=== PATIENT | male | born 1995 ===

== ENCOUNTER 2024-12-01 08:26 | Emergency (ER) | payer MEDICARE, SELFPAY ==
[2024-12-01 08:32] VITALS: BP 121/84; PULSE 54; RESP 18; TEMP 37.2; O2SAT 96; BMI 28.0
--- NOTE | 2024-12-01 08:59 | ED_ITS ---
HPI - General Adult General Date Seen: 12/01/24 Chief complaint: Abdominal Pain Stated complaint: stomach and kidney pain Time Seen by Provider: 12/01/24 08:32 History of Present Illness HPI narrative: Patient is a 28-year-old young man here with his fiancee for evaluation of abdominal and flank/lower back pain. He says that symptoms have been present for about a week and half. It was worse today which is what made him decide to come in. He says he has had normal appetite, he has not had any nausea vomiting, denies diarrhea constipation, black or bloody stools. Denies history of prior similar pain. He has pain is there all the time but it is worse when he lays down or rolls from side to side. He says that the pain is coming from his kidney. He has not noted any hematuria, has not had dysuria or frequency. No history of kidney stones. He notes a history of depression, anxiety, bipolar, for which he takes medical marijuana. He denies any other medications. Denies other substances including alcohol and tobacco. He has not taken anything for pain at home. Related Data Home Medications ?Medication ?Instructions ?Recorded ?Confirmed No Known Home Medications 12/01/24 12/01/24 Allergies Allergy/AdvReac Type Severity Reaction Status Date / Time No Known Drug Allergies Allergy Verified 12/01/24 09:49 Review of Systems Status of ROS: Reports: 10 or more systems reviewed and unremarkable except as noted in History and below [facility] Social History Smoking Status: Current some day smoker What tobacco products do you use: cigarettes Do you use any of these nicotine containing products: None Second hand tobacco smoke exposure: No How often do you have a drink containing alcohol: monthly or less How many standard drinks containing alcohol do you have on a typical day: 1 or 2 AUDIT-C Alcohol total score: 1 Non-prescribed substance use: marijuana (any form) service: No Exam Narrative: Exam Narrative: Vital signs reviewed In general, alert, nontoxic young man. Laying comfortably in bed. Head: Normocephalic, atraumatic. Eyes: Sclera clear. Pupils equal and reactive. ENT: Mucous membranes moist. Neck: Supple without adenopathy. Heart: Regular rate and rhythm without murmur. Lungs: Clear. No increased work of breathing, crackles or wheezes. No CVA tenderness. Back: He does seem to have some diffuse tenderness of the musculature in the right low back. Abdomen: Abdomen is soft, nondistended. He notes diffuse tenderness throughout the abdomen but there is no rebound guarding or rigidity. Extremities: Well perfused, pulses intact. No significant edema. Neurologic: Alert, conversant. Speech fluent, face symmetric. Moves all extremities equally. Skin: Warm, dry well perfused. Affect: Normal. Const: Vital Signs, click to edit/add: Vital Signs - 24 hr 12/01/24 08:32 12/01/24 10:55 Temperature 98.9 F Pulse Rate 58 L Pulse Rate [Pulse Oximeter] 54 L Respiratory Rate 18 16 Blood Pressure 120/81 Blood Pressure [Ri ght Upper Arm] 121/84 Pulse Oximetry 96 98 Oxygen Delivery Me thod Room Air Room Air Course Course ED Course: We placed an IV here, gave Toradol 15 mg IV as well as 500 mL of normal saline. Patient declined most of the IV fluids. He had labs including a CBC, metabolic panel, liver function tests and lipase as well as UA. All lab results are reviewed and are within normal limits. CT scan by my review showed some fluid along the retroperitoneal space on the right, I did not see significant abnormalities in the bowel, was not able to see the appendix. Kidneys look normal. Final radiology report was reviewed and I discussed this on the phone with the radiologist as well. There is a small amount of free fluid in the right retroperitoneum of unclear etiology. Specifically, the kidneys, pancreas, duodenum, and bowel all look normal. The appendix was visualized and is normal. She did note that the IVC looked dilated, which she felt was likely related to hydration. Patient has no risk factors for DVT and has no symptoms to suggest DVT. With regard to the retroperitoneal fluid, discussed the possibility of ureteral injury, patient denies any recent trauma or surgeries, so this is felt to be of low likelihood. Also seen on CT was a slightly enlarged lymph node near the esophagus and a small area of consolidation in the right lower lobe of uncertain significance clinically in the absence of any pulmonary symptoms. I have discussed all this with the patient. He would like to avoid further testing today if possible. Initially he was going to leave [facility] and refused any further testing but ultimately did agree to stay, I have discussed options with him of additional imaging today to include a CT urogram versus observation and close follow-up as an outpatient. He would prefer to follow-up as an outpatient. We have made him a clinic appointment and I have stressed the importance of following up for that appointment. If he worsens in the meantime, develops worsening or severe pain, fevers, vomiting, or other new symptoms, he should return to the emergency department for re-evaluation. He declines need for anything for pain at home. Vital Signs Vital signs: Initial Vital Signs Temperature 98.9 F 12/01/24 08:32 Temperature Source Temporal Artery Scan 12/01/24 08:32 Pulse Rate 54 L 12/01/24 08:32 Pulse Rhythm Regular 12/01/24 08:32 Respiratory Rate 18 12/01/24 08:32 Blood Pressure 121/84 12/01/24 08:32 Blood Pressure Mean 96 12/01/24 08:32 Blood Pressure Position Semi-Fowlers 12/01/24 08:32 Pulse Oximetry 96 12/01/24 08:32 Oxygen Delivery Method Room Air 12/01/24 08:32 Vital Signs Temperature 98.9 F 12/01/24 08:32 Pulse Rate 54 L 12/01/24 08:32 Respiratory Rate 18 12/01/24 08:32 Blood Pressure 121/84 12/01/24 08:32 Pulse Oximetry 96 12/01/24 08:32 Oxygen Delivery Method Room Air 12/01/24 08:32 Temperature 98.9 F 12/01/24 08:32 Pulse Rate 58 L 12/01/24 10:55 Respiratory Rate 16 12/01/24 10:55 Blood Pressure 120/81 12/01/24 10:55 Pulse Oximetry 98 12/01/24 10:55 Oxygen Delivery Method Room Air 12/01/24 10:55 Medications Administered Medications: Discontinued Medications Generic Name Dose Route Start Last Admin Trade Name Freq PRN Reason Stop Dose Admin Sodium Chloride 500 mls @ 500 mls/hr 12/01/24 08:58 12/01/24 10:28 0.9 % Sodium Chloride 500 Ml IV 12/01/24 09:57 Infused .Q1H ONE Infusion Ketorolac Tromethamine 15 mg 12/01/24 08:58 12/01/24 09:25 Ketorolac 15 Mg/Ml Inj IVP 12/01/24 08:59 Not Given ONCE ONE Medical Decision Making Lab Data Lab results reviewed: Yes I reviewed the patient's lab results Labs: Lab Results 12/01/24 12/01/24 Range/Units 09:00 09:20 WBC 8.45 (4.50-11.00) K/uL RBC 5.18 (4.30-5.90) m/uL Hgb 15.1 (13.5-17.5) gm/dL Hct 44.8 (37.0-53.0) % MCV 87 (80-100) fL MCH 29 (26-34) pg MCHC 34 (32-36) gm/dL RDW Coeff of Patric 11.8 (11.5-15.5) % Plt Count 235 (140-440) K/uL Neut % (Auto) 68.8 (42.0-72.0) % Lymph % (Auto) 21.1 (20-44) % [place] % (Auto) 6.9 (0.0-11.0) % Eos % (Auto) 2.6 (0.0-7.0) % Baso % (Auto) 0.5 (0.0-3.0) % Neut # (Auto) 5.82 (1.7-7.0) K/uL Lymph # (Auto) 1.78 (0.90-2.90) K/uL [place] # (Auto) 0.60 (0.00-0.90) K/UL Eos # (Auto) 0.22 (0.00-0.50) K/uL Baso # (Auto) 0.04 (0.00-0.30) K/uL Abs Immat Gran (auto) 0.01 (0.00-0.30) K/uL Imm/Tot Granulo (auto) 0.1 % Sodium 135 (135-149) mmol/L Potassium 4.3 (3.6-5.1) mmol/L Chloride 99 (96-114) mmol/L Carbon Dioxide 31 (20-32) mmol/L Anion Gap 5 L (7-15) mEq/L BUN 16 (5-24) mg/dL Creatinine 1.0 (0.5-1.5) mg/dL Estimated Creat Clear 114.57 Estimated GFR 106 ml/min Glucose 94 (60-115) mg/dL Calcium 9.3 (8.4-10.6) mg/dL Total Bilirubin 0.7 (0.1-1.5) mg/dL Direct Bilirubin 0.2 (0.0-0.5) mg/dL AST 23 (12-35) U/L ALT 14 (4-50) U/L Alkaline Phosphatase 67 (40-150) U/L C-Reactive Protein 0.7 (0.5-1.0) mg/dL Total Protein 7.6 (6.0-8.3) g/dL Albumin 4.5 (3.3-5.0) g/dL Lipase 102 (23-300) U/L Urine Color Yellow (Yellow) Urine Appearance Clear (Clear) Urine pH 7.5 (5.0-8.5) Ur Specific [place] 1.020 (1.000-1.030) Urine Protein 1+ A (Negative) Urine Glucose (UA) Negative (Negative) Urine Ketones Negative (Negative) Urine Blood Negative (Negative) Urine Nitrite Negative (Negative) Urine Bilirubin Negative (Negative) Urine Urobilinogen 0.2 (0.2-1.0) Ur Leukocyte Esterase Negative (Negative) Urine RBC 0-2 (0-2) Urine WBC 0-2 (0-5) Ur Squamous Epith Cells Few (None-Few) Urine Bacteria None (None) Urine Mucus Few A (None) Imaging Data CT scan - abdomen: Attestation: I have reviewed the pertinent imaging results. Radiologist's impression: [place] [address] Diagnostic Imaging Report Patient: Milton Bolivar JR MR#: [id number] : 1995 Acct:[id number] Loc: ED Service Date: 12/01/[address]: Ordering Physician: Shirley Matthews M.D. Date of Service: 12/01/24 Procedure(s): CT abdomen pelvis w con Accession Number(s): [id number] cc: Shirley Matthews M.D.; Provider,Not a Local~ For Patients: As a result of the Cures Act, medical imaging exams and procedure reports are released immediately into your electronic medical record. You may view this report before your referring provider. If you have questions, please contact your health care provider. INDICATION: Diffuse abdominal pain TECHNIQUE: CT abdomen and pelvis acquired with 97 cc Omnipaque 350 IV contrast. COMPARISON: None. FINDINGS: Lower chest: Patchy consolidation in the right lower lobe. Liver: Unremarkable. Gallbladder and bile ducts: Unremarkable. Pancreas: Unremarkable. Spleen: Unremarkable. Adrenal glands: Unremarkable. Kidneys: Unremarkable. No suspicious masses, stones, or hydronephrosis. GI tract: No obstruction. Normal appendix. Vasculature: Abdominal aorta is normal in caliber. The IVC and iliac veins are distended. Mesenteric arteries are patent. Lymph nodes: No lymphadenopathy. Peritoneum/Abdominal Wall: Small volume fluid throughout the right retroperitoneal space and extending along the right pericolic gutter. Pelvis: Unremarkable. Bones: Unremarkable for age. IMPRESSION: Right lower lobe consolidation. Small volume fluid throughout the right retroperitoneal space and extending along the right pericolic gutter, without definite identified source. No definite inflammation of the colon or pancreas to suggest colitis or pancreatitis. If the patient has had recent trauma or surgery, CT IVP can be considered to evaluate for ureteral injury. The IVC and iliac veins are markedly distended, likely related to hydration. However, if the patient is at risk for extensive thrombus or demonstrates concerning symptoms, consider CT venogram. IVC thrombus can also cause the above-mentioned fluid. Please note that all CT scans at this facility use dose modulation, iterative reconstruction, and/or weight-based dosing when appropriate to reduce radiation dose to as low as reasonably achievable. Dictated by Marli Francois MD @ 12/01/2024 10:26:04 AM Discharge Plan Discharge Clinical Impression: Abdominal pain Patient Disposition: Home, Self-Care Condition: Stable Instructions: Abdominal Pain (ED) Additional Instructions: Your CT scan shows some fluid in the retroperitoneal space on the right. Because of this is not clear. As we have discussed, I would recommend additional imaging to further evaluate this area as to the cause of this fluid. Absent this, I cannot rule out other more serious conditions that would require more urgent attention. At a minimum, I would recommend that you follow-up with a primary care clinic in [place], or you could follow-up with 1 of our doctors here in [place]. Our clinic number is [phone]. If you have worsening pain, new symptoms such as fever, blood in your urine, painful urination, vomiting, or any other significant changes, you should return to the emergency department. Follow up appointment scheduled with Dr. Hernandez, at the [facility] on December 06 at 11:00 AM. [facility] [address] [place] [address] Prescriptions: No Action No Known Home Medications Follow Up/Referrals: Aristeo Hernandez MD [Staff Physician] - 12/06/24 11:00 am Provider,Not a Local [Primary Care Provider] - Stand Alone Forms: [employer] Info Instructions
[2024-12-01 09:15] LABS: Appearance Urine Clear (Clear); Bilirubin Urine Negative (Negative); Blood Urine Negative (Negative); Color Urine Yellow (Yellow); Glucose Urine Negative (Negative); Ketones Urine Negative (Negative); Leukocyte Esterase Urine Negative (Negative); Nitrite Urine Negative (Negative); Protein Urine 1+ (Negative); Urobilinogen Urine 0.2 (0.2-1.0); pH Urine 7.5 (5.0-8.5)
[2024-12-01] MEDS: 0.9 % SODIUM CHLORIDE 500 ML 500 ML IV (09:22)
[2024-12-01 09:30] LABS: Basophils Absolute Auto 0.04 K/uL (0.00-0.30); Basophils Percent Auto 0.5 % (0.0-3.0); Eosinophils Absolute Auto 0.22 K/uL (0.00-0.50); Eosinophils Percent Auto 2.6 % (0.0-7.0); Hematocrit 44.8 % (37.0-53.0); Hemoglobin* 15.1 gm/dL (13.5-17.5); Immature Granulocytes Abs Auto 0.01 K/uL (0.00-0.30); Immature Granulocytes Pct Auto 0.1 %; Lymphocytes Absolute Auto 1.78 K/uL (0.90-2.90); Lymphocytes Percent Auto 21.1 % (20-44); Mean Corpuscular HGB Conc 34 gm/dL (32-36); Mean Corpuscular Hemoglobin 29 pg (26-34); Mean Corpuscular Volume 87 fL (80-100); Monocytes Percent Auto 6.9 % (0.0-11.0); Neutrophils Absolute Auto 5.82 K/uL (1.7-7.0); Neutrophils Percent Auto 68.8 % (42.0-72.0); Platelet Count* 235 K/uL (140-440); RDW Coefficient of Variation % 11.8 % (11.5-15.5); Red Blood Count 5.18 m/uL (4.30-5.90); White Blood Count* 8.45 K/uL (4.50-11.00)
[2024-12-01 09:33] LABS: Slide Review Reflex No
[2024-12-01 09:44] LABS: Albumin* 4.5 g/dL (3.3-5.0); Chloride* 99 mmol/L (96-114); Potassium* 4.3 mmol/L (3.6-5.1); Sodium* 135 mmol/L (135-149)
[2024-12-01 09:46] LABS: Blood Urea Nitrogen* 16 mg/dL (5-24); Est. Creatinine Clearance* 114.57; Estimated Glomerular Filt Rate 106 ml/min
[2024-12-01 09:47] LABS: Alanine Aminotransferase* 14 U/L (4-50); Alkaline Phosphatase* 67 U/L (40-150); Anion Gap 5 mEq/L (7-15); Aspartate Amino Transferase* 23 U/L (12-35); Bilirubin Direct* 0.2 mg/dL (0.0-0.5); Bilirubin Total* 0.7 mg/dL (0.1-1.5); Calcium* 9.3 mg/dL (8.4-10.6); Carbon Dioxide* 31 mmol/L (20-32); Glucose* 94 mg/dL (60-115); Lipase* 102 U/L (23-300); Total Protein* 7.6 g/dL (6.0-8.3)
[2024-12-01 09:50] LABS: RBC Urine 0-2 (0-2); Squamous Epithelial Cell Urine Few (None-Few); WBC Urine 0-2 (0-5)
[2024-12-01 09:50] LABS: C Reactive Protein* 0.7 mg/dL (0.5-1.0)
[2024-12-01 09:51] LABS: Mucus Urine Few
[2024-12-01 10:55] VITALS: BP 120/81; PULSE 58; RESP 16; O2SAT 98
== END 2024-12-01 11:30 | disposition home or self-care (01) ==
PROVIDERS: Emergency Provider Emergency Medicine
DX: R10.9 Unspecified abdominal pain (principal)
CPT/HCPCS: 36415; 74177; 80048; 80076; 81001; 83690; 85025; 86140; 99284; J7030; Q9967